=== PATIENT | male | born 1965 | race Caucasian/White ===

== ENCOUNTER → 2018-01-24 | Outpatient (CLI) | payer BC ==
--- NOTE | 2018-01-24 11:14 | RAD ---
PQRS Compliance Statement: One or more of the following individualized dose reduction techniques were utilized for this examination: 1. Automated exposure control 2. Adjustment of the mA and/or kV according to patient size 3. Use of iterative reconstruction technique CT ABDOMEN PELVIS WO CONTRAST Clinical Indication: RIGHT FLANK PAIN FOR 2 MONTHS- PAIN WORSENING Comparison: None. Technique: Helical CT imaging of the abdomen and pelvis is performed without IV or oral contrast. Findings: Evaluation of solid organs and bowel is limited without oral and IV contrast, decreasing sensitivity for detection of pathology. Lung bases clear. Cardiac size normal. 3.3 cm hepatic cyst or hemangioma in segment 2. Liver otherwise homogeneous. Faint dependent hyperdensity in the gallbladder may be sludge. No gallbladder wall thickening. The spleen, pancreas, adrenal glands, and abdominal aorta are normal. No perinephric stranding or hydronephrosis. There is no renal or ureteral calculus. Stomach unremarkable. No dilated small bowel. Rectum moderately distended with stool, no wall thickening. The appendix is normal. No colon wall thickening. No abdominal adenopathy or free fluid. Urinary bladder is not well distended. There is moderate wall thickening. Prostate is enlarged. There are coarse calcifications of the prostate. There is no pelvic free fluid. No acute bone abnormality. IMPRESSION: 1. Prostate is enlarged. Moderate wall thickening of the urinary bladder. Considerations include chronic bladder obstruction or nonspecific cystitis. 2. Rectum is moderately distended with stool. No evidence of colitis. 3. Left hepatic cyst. 4. Question gallbladder sludge. Electronically signed by: Froilan Fall MD (01/24/2018 11:11 AM) [id number]
== END | disposition home or self-care (01) ==
LOC: PMG 10:30
PROVIDERS: ATTEND Family Medicine
DX: N40.0 Benign prostatic hyperplasia without lower urinary tract symptoms (principal); K76.89 Other specified diseases of liver; K62.89 Other specified diseases of anus and rectum
CPT/HCPCS: 74176